=== PATIENT | male | born 1950 | race Caucasian/White ===

== ENCOUNTER 2021-07-25 13:08 | Emergency (ER) | payer OTHER, SELFPAY ==
--- NOTE | 2021-07-25 13:28 | ED.URI ---
HPI - URI/Sore Throat General Chief Complaint: Upper Respiratory Infection Stated Complaint: cough Time Seen by Provider: 07/25/21 14:13 Source: patient and RN notes reviewed Mode of arrival: ambulatory Limitations: no limitations History of Present Illness HPI Narrative: 70-year-old male presents concern for more than 2-week history of cough, nasal drainage, nasal congestion. Reports forceful cough, copious drainage. Reports he was treated 13 days ago with Augmentin, 20 mg prednisone and cough medicine. Denies improvement in symptoms. He denies fever, bodies, chills, sweats, shortness of breath. MD elicited complaint: cough Related Data Home Medications Medication Instructions Recorded Confirmed amitriptyline 50 mg PO DAILY 07/25/21 07/25/21 amlodipine 5 mg PO DAILY 07/25/21 07/25/21 lisinopril-hydrochlorothiazide 1 tablet PO DAILY 07/25/21 07/25/21 tramadol 50 mg PO DAILY PRN 07/25/21 07/25/21 Allergies Allergy/AdvReac Type Severity Reaction Status Date / Time No Known Allergies Allergy Verified 07/25/21 14:09 Review of Systems Review of Systems: CONSTITUTIONAL: Denies malaise, chills, sweats, or fever. EYES: Denies visual changes, redness, or discharge. ENT: Reports rhinorrhea, congestion, sinus pain. Denies otalgia and sore throat. CARDIOVASCULAR: Denies chest pain, palpitations, or edema. RESPIRATORY: Reports productive persistent cough. Denies dyspnea. GASTROINTESTINAL: Denies abdominal pain, nausea, vomiting, diarrhea SKIN: Denies rash or itching. MUSCULOSKELETAL: Denies myalgia. NEUROLOGIC: Denies headache. All systems reviewed & are unremarkable except as noted in HPI and below PMFSH Comments At time of signature, agree with nursing past medical, surgical, social and family history. There is no relevant family history pertinent to the presenting complaint Exam Narrative: GENERAL: Well-appearing, well-nourished, and in no acute distress. HEAD: Normocephalic EYES: PERRLA, conjunctivae clear ENT: Nares clear, turbinates edematous and erythematous. Mucous membranes moist. TM pearly mercer with dull light reflex bilaterally; no tragal tenderness. Oropharynx mildly erythematous without lesions. Tonsils not enlarged and without exudate, no drooling, no hoarseness, no trismus, uvula midline. NECK: Supple. No lymphadenopathy CHEST: Clear to auscultation, breath sounds equal. No wheezing, rhonchi, rales, or stridor. No respiratory distress, speaks in full sentences. Cough noted HEART: Regular rate and rhythm. No murmur heard. SKIN: Warm, dry, no rash. NEURO: Alert and oriented x3. PSYCH: Normal mood and affect Course Course Emergency Course: Patient is aware of diagnosis, understands and agrees to treatment plan. Anticipatory guidance given. Patient agrees to follow-up as directed and is aware of reasons to seek care at the emergency department. Portions of this record may have been created with voice recognition software Vital Signs Vital signs: Reviewed. Patient has history of hypertension MDM - URI/Sore Throat MDM Narrative Medical decision making narrative: Differential diagnosis considered: Patel virus, strep pharyngitis, allergic rhinitis, upper respiratory tract infection, sinusitis, rhinosinusitis, nasopharyngitis. viral pharyngitis, otitis media, otitis externa, pneumonia, bronchitis, viral cough syndrome, viral syndrome, and influenza. Exam findings show no acute concerns or changes; patient is non-toxic appearing and is in no distress. Patient is appropriate for outpatient treatment and follow-up. Critical Care Time Critical Care Time Critical Care Time: No Discharge Plan Discharge Clinical Impression: Sinobronchitis Patient Disposition: Home, Self-Care Condition: Stable Instructions: Antibiotic Form, Sinusitis (ED) Additional Instructions: Take prescribed medications as directed Recommend antihistamine such as Benadryl at night time and Zyrtec or Nano during the day Cough syrup ma
[2021-07-25 13:45] VITALS: BP 147/81; PULSE 92; RESP 16; TEMP 37.1; O2SAT 98
== END 2021-07-25 14:30 | disposition home or self-care (01) ==
PROVIDERS: Emergency Provider Nurse Practitioner
DX: J40 Bronchitis, not specified as acute or chronic (principal)
CPT/HCPCS: 99213; G0463

== ENCOUNTER 2022-07-11 08:15 | Emergency (ER) | payer OTHER, SELFPAY ==
--- NOTE | 2022-07-11 08:16 | ED.WOUNDLAC ---
HPI - Wound/Laceration General Chief Complaint: Wound/Laceration Stated Complaint: laceration right leg Time Seen by Provider: 07/11/22 08:16 Source: patient Mode of arrival: ambulatory Limitations: no limitations History of Present Illness HPI narrative: Mr. Pimentel is a 71-year-old male patient presenting to clinic today with complaints of a laceration to his right leg. He reports this occurred approximately 1 week ago. States that it has now become red and swollen and painful. Tetanus is unknown. He denies any fever or chills Related Data Home Medications Medication Instructions Recorded Confirmed amitriptyline 50 mg tablet 50 mg PO DAILY 07/25/21 07/25/21 amlodipine 5 mg tablet 5 mg PO DAILY 07/25/21 07/25/21 lisinopril 20 1 tablet PO DAILY 07/25/21 07/25/21 mg-hydrochlorothiazide 12.5 mg tablet tramadol 50 mg tablet 50 mg PO DAILY PRN Pain 07/25/21 07/25/21 Allergies Allergy/AdvReac Type Severity Reaction Status Date / Time No Known Allergies Allergy Verified 07/25/21 14:09 Review of Systems Review of Systems: Pertinent positives per HPI. Patient denies any fever, chills, rash, headache, visual changes, dizziness, cough, runny nose, sore throat, shortness of breath, chest pain, palpitations, nausea, vomiting, diarrhea, constipation, abdominal pain, or any urinary issues. PMFSH Comments At the time of my signature, I reviewed and agree with the nursing past medical, surgical, social, and family history. There is no relevant family history pertinent to the patient complaint. Exam Narrative: General: Well-developed, well nourished, in no apparent distress Head: Normocephalic, atraumatic. Cardio: Regular rate and rhythm, s1 and s2 normal, no murmur appreciated. Resp: Clear to auscultation bilaterally, no rhonchi, rales, wheezing or rubs. Integumentary: [place], warm, and dry, 4 cm macerated laceration to the right anterior galvin with approximately 2 cm radius of redness and swelling. Tenderness to palpation over the wound. Brownish yellow discharge on old Telfa Course Course Emergency Course: Portions of this record may have been created with voice recognition software. Level of Care: Express Care Visit Vital Signs Vital signs: Vital Signs Temperature 37.3 C 07/11/22 08:28 Pulse Rate 95 07/11/22 08:28 Respiratory Rate 16 07/11/22 08:28 Blood Pressure 144/83 H 07/11/22 08:28 Pulse Oximetry 99 07/11/22 08:28 Oxygen Delivery Room Air 07/11/22 08:28 Temperature 37.3 C 07/11/22 08:28 Pulse Rate 95 07/11/22 08:28 Respiratory Rate 16 07/11/22 08:28 Blood Pressure 144/83 H 07/11/22 08:28 Pulse Oximetry 99 07/11/22 08:28 Oxygen Delivery Room Air 07/11/22 08:28 Vital signs reviewed MDM - Wound/Laceration MDM Narrative Medical decision making narrative: At the time of visit patient is resting comfortably on the exam table. I suspect the patient has an acute wound infection. Prescription for doxycycline was sent to the pharmacy and as well as mupirocin cream. I will also give the patient a tetanus shot in the clinic today. Supportive measures were discussed with the patient he voiced understanding of discharge instructions and agrees to treatment plan. Differential Diagnosis Differential diagnosis: Likely laceration and other ( Wound infection) Discharge Plan Discharge Clinical Impression: Wound infection Patient Disposition: Home, Self-Care Condition: Stable Instructions: Antibiotic Form, Wound Infection (ED) Additional Instructions: Leave bandage on for 24 hours then may remove and apply band aide covering as needed. Keep wound clean and dry Apply mupirocin cream as directed Take doxycycline as prescribed Watch for signs and symptoms of infection- redness, streaking, swelling, purulent discharge, or increase in pain. Follow up with your PCP for suture removal or return to the Express care. Prescriptions: New doxycycline
[2022-07-11 08:28] VITALS: BP 144/83; PULSE 95; RESP 16; TEMP 37.3; O2SAT 99
[2022-07-11] MEDS: TETANUS,DIPHTHERIA,AC PERTUSSIS ADULT (0.5 ML) BOOSTRIX IM (08:40)
== END 2022-07-11 08:50 | disposition home or self-care (01) ==
LOC: EXPCOLL 08:18
PROVIDERS: Emergency Provider Nurse Practitioner Family; PCP Family Medicine
DX: S81.811A Laceration without foreign body, right lower leg, initial encounter (principal); L08.9 Local infection of the skin and subcutaneous tissue, unspecified; X58.XXXA Exposure to other specified factors, initial encounter; Z23 Encounter for immunization
CPT/HCPCS: 90471; 90715; 99212; G0463

== ENCOUNTER 2024-12-31 10:30 | Emergency (ER) | payer OTHER, SELFPAY ==
--- NOTE | ~2024-12-31 | XR_ITS ---
EXAMINATION: XR knee RT min 4V DATE: 12/31/2024 12:02 INDICATION: Right knee pain TECHNIQUE: Anteroposterior, 2 oblique and crosstable lateral views of the right knee were obtained COMPARISON: None. FINDINGS: Right total knee arthroplasty with patellar resurfacing which appears well seated in near-anatomic al ignment. No periprosthetic lucency to suggest loosening or infection. No fracture. Soft tissues are u nremarkable. No right knee joint effusion. IMPRESSION: 1. Right total knee arthroplasty. No joint effusion or acute osseous abnormality. Reviewed, dictated and finalized at location A. IMPRESSION: 1. Right total knee arthroplasty. No joint effusion or acute osseous abnormalit y.
[2024-12-31 10:45] VITALS: BP 127/81; PULSE 87; RESP 16; TEMP 36.7; O2SAT 95
--- NOTE | 2024-12-31 13:17 | ED.LOWEXIN ---
HPI - Extremity Injury (Lower) General Chief Complaint: Extremity Injury, Lower Stated Complaint: right knee pain Time Seen by Provider: 12/31/24 10:45 Source: patient Mode of arrival: ambulatory Limitations: no limitations History of Present Illness HPI Narrative: 74-year-old male presents with complaint of right knee pain and swelling for 1 day. Patient states that he used his right leg to push down recliner instead of using recliner handle. [place] pain immediately after doing this. Ambulatory with limp. History of right knee replacement. All systems reviewed and negative except as noted above. Related Data Home Medications ?Medication ?Instructions ?Recorded ?Confirmed ?Last Taken ?Type amitriptyline 50 mg tablet 50 mg PO DAILY 07/25/21 07/25/21 Unknown History amlodipine 5 mg tablet 5 mg PO DAILY 07/25/21 07/25/21 Unknown History lisinopril 20 1 tablet PO DAILY 07/25/21 07/25/21 Unknown History mg-hydrochlorothiazide 12.5 mg tablet tramadol 50 mg tablet 50 mg PO DAILY PRN Pain 07/25/21 07/25/21 Unknown History ezetimibe 10 mg tablet mg 12/31/24 Unknown History Allergies Allergy/AdvReac Type Severity Reaction Status Date / Time No Known Allergies Allergy Verified 12/31/24 11:59 Review of Systems Review of Systems: CONSTITUTIONAL: Denies fever, chills, or sweats. EYES: Denies visual changes, redness, or discharge. ENT: Denies rhinorrhea, congestion, sore throat, or otalgia. CARDIOVASCULAR: Denies chest pain, palpitations, or edema. RESPIRATORY: Denies cough or dyspnea. GASTROINTESTINAL: Denies abdominal pain, nausea, vomiting, or diarrhea. GENITOURINARY: Denies dysuria or hematuria. SKIN: Denies rash or itching. MUSCULOSKELETAL: Denies back pain or myalgia. Reports right knee pain and swelling NEUROLOGIC: Denies headache, numbness, or weakness. PSYCHIATRIC: Denies anxiety or depression. All other systems reviewed are negative, except as documented in HPI. PMFSH Comments At time of signature, agree with nursing past medical, surgical, social and family history. There is no relevant family history pertinent to the presenting complaint. Exam Narrative: GENERAL: This is a well-nourished, well-developed patient, in no apparent distress. HEAD: normocephalic, atraumatic. EYES: PERRL. Sclera clear/white. Vision is grossly intact. EARS: External ears normal NOSE: External nose normal NECK: Neck supple, non-tender without lymphadenopathy, masses or thyromegaly. CARDIOVASCULAR: Regular rate and rhythm without murmurs, gallops, or rubs. RESPIRATORY: Clear to auscultation. Breath sounds equal bilaterally. No wheezes, rales, or rhonchi. SKIN: warm, Dry, intact with no suspicious lesions or rash, good texture and turgor. NEURO: awake, alert, and oriented to person, place and time. There were no obvious focal neurologic abnormalities. EXTREMITIES: Moderate amount of swelling to anterior aspect of right knee with pain to lateral ligament and lateral meniscus. No deformity noted. Decreased range of motion due to pain. Negative anterior posterior drawer testing. Course Course Level of Care: Express Care Visit Vital Signs Vital signs: Vital Signs Temperature 36.7 C 12/31/24 10:45 Pulse Rate 87 12/31/24 10:45 Respiratory Rate 16 12/31/24 10:45 Blood Pressure 127/81 12/31/24 10:45 Pulse Oximetry 95 12/31/24 10:45 Oxygen Delivery Room Air 12/31/24 10:45 Temperature 36.7 C 12/31/24 10:45 Pulse Rate 87 12/31/24 10:45 Respiratory Rate 16 12/31/24 10:45 Blood Pressure 127/81 12/31/24 10:45 Pulse Oximetry 95 12/31/24 10:45 Oxygen Delivery Room Air 12/31/24 10:45 Reviewed MDM - Extremity Injury (Lower) MDM Narrative Medical decision making narrative: X-ray of right knee is negative for fracture, effusion. Recommend follow-up with career resource specialist at next available appointment. Please be advised this is a medical document. It is intended for [id number] communication. It is written in medical language and may contain unfamiliar abbreviations or verbiage. Medical documents are intended to carry relevant information, facts as evident, and the clinical opinion of the practitioner at the time of the encounter. This report may have been done utilizing a voice recognition system. Attempts have been made to correct errors. However, there may be uncorrected grammatical, spelling, and recognition errors present. The file time of this note does not necessarily represent the time of service. Imaging Data My impression: agree with radiologist Radiologist's impression: EXAMINATION: XR knee RT min 4V DATE: 12/31/2024 12:02 INDICATION: Right knee pain TECHNIQUE: Anteroposterior, 2 oblique and crosstable lateral views of the right knee were obtained COMPARISON: None. FINDINGS: Right total knee arthroplasty with patellar resurfacing which appears well seated in near-anatomic alignment. No periprosthetic lucency to suggest loosening or infection. No fracture. Soft tissues are unremarkable. No right knee joint effusion. IMPRESSION: 1. Right total knee arthroplasty. No joint effusion or acute osseous abnormality. Discharge Plan Discharge Clinical Impression: Strain of right knee Patient Disposition: Home Condition: Stable Instructions: Knee Pain (ED) Additional Instructions: Wear semaj wrap for comfort and to compress swelling. Take tylenol every 6 to 8 hours as needed for pain. Elevate when at rest. Avoid activities that increase pain to right knee. Apply ice as needed for pain. Follow up with your doctor for further evaluation. Patient Language: Dominican Prescriptions: No Action lisinopril-hydrochlorothiazide 20-12.5 mg tablet 1 tablet PO DAILY amlodipine 5 mg tablet 5 mg PO DAILY tramadol 50 mg tablet 50 mg PO DAILY PRN (Reason: Pain) amitriptyline 50 mg tablet 50 mg PO DAILY ezetimibe 10 mg tablet Follow-up/Referrals: Billy,Avery Vigil MD [Primary Care Provider] - Time of Disposition: 12:03
== END 2024-12-31 12:16 | disposition home or self-care (01) ==
PROVIDERS: Emergency Provider Nurse Practitioner Family; PCP Family Medicine
DX: S86.911A Strain of unspecified muscle(s) and tendon(s) at lower leg level, right leg, initial encounter (principal); X50.0XXA Overexertion from strenuous movement or load, initial encounter; Z96.651 Presence of right artificial knee joint; I10 Essential (primary) hypertension; E78.00 Pure hypercholesterolemia, unspecified
CPT/HCPCS: 73564; 99213; G0463